=== PATIENT | male | born 1995 | race Caucasian/White ===

== ENCOUNTER 2018-04-17 22:22 | Emergency (ER) | payer BC ==
[2018-04-17] MEDS ORDERED: NS 0.9% 1000 ML* 1,000 ML IV ONE ×2 (22:44→23:45)
[2018-04-17 23:00] LABS: ABS Basophils 0.1 10^3/ul (0-0.2); ABS Eosinophils 0.1 10^3/ul (0-0.6); ABS Lymphocytes 2.1 10^3/ul (1.0-4.8); ABS Monocytes 0.6 10^3/ul (0-0.8); ABS Neutrophils 3.5 10^3/ul (1.5-7.7); ABS Nucleated RBC 0 10^3/ul; Eosinophil % 1.7 % (0-6); Hematocrit 41 % (42-52); Hemoglobin 14.1 g/dl (14.0-18.0); Lymphocyte % 33.2 % (25-47); Mean Corpuscular HGB Conc 34 g/dl (31-36); Mean Corpuscular Hemoglobin 29 pg (27-31); Mean Corpuscular Volume 85 fL (80-94); Mean Platelet Volume 9.6 um3 (7.4-10.4); Nucleated Red Blood Cells % 0.1; Platelet Count 135 10^3/ul (150-450); Red Blood Count 4.85 10^6/ul (4.00-5.40); Red Cell Distribution Width 13 % (10.5-15); White Blood Count 6.4 10^3/ul (3.5-10.8)
[2018-04-17 23:18] LABS: EGFR Non-African American 134.4 (>60)
--- NOTE | 2018-04-17 23:21 | ED ---
Syncope/Near Syncope - HPI Summary HPI Summary: 23 year old male presents with syncope today. He states that he went outside and felt very dizzy. He states he felt so weak that he dropped to his knees. He states that he told his girlfriend he just wanted to rest for a while and then he passed out. He was out for like 5 minutes. EMS arrived and had to stimulate him with painful stimuli to arouse him. He states he has passed out once 10 years ago when [place] was [place] No family history of syncope. He states he's been having occasional shortness of breath. No chest pain. He states he feels that he did have some blurry vision right before he passed out. No bowel pain. No blood in stool. No sore throat. No fever. No recent illness. He also he states that he has had loss of appetite. He had some popcorn before he passed out. He states that prior to this that he passed out 2 times earlier today. the previous syncopal episodes were witnessed. His girlfriend denies that he hit his head. - History Of Current Complaint Chief Complaint: EDSyncope Time Seen by Provider: 04/17/18 22:44 - Allergies/Home Medications Allergies/Adverse Reactions: Allergies Allergy/AdvReac Type Severity Reaction Status Date / Time No Known Allergies Allergy Verified 04/17/18 22:52 Home Medications: Home Medications NK [No Home Medications Reported] 04/17/18 [History Confirmed 04/17/18] PMH/Surg Hx/FS Hx/Imm Hx Endocrine/Hematology History: Denies: Hx Anticoagulant Therapy Cardiovascular History: Denies: Hx Hypertension, Hx Myocardial Infarction Infectious Disease History: No Infectious Disease History: Denies: Traveled Outside the [place] in Last 30 Days - Family History Known Family History: Positive: Other - no fam hx of syncope Negative: Cardiac Disease - Social History Alcohol Use: Occasionally Substance Use Type: Reports: None Smoking Status (MU): Light Every Day Tobacco Smoker Review of Systems Negative: Fever Negative: Chest Pain Negative: Shortness Of Breath Positive: Weakness, Syncope All Other Systems Reviewed And Are Negative: Yes Physical Exam Triage Information Reviewed: Yes Vital Signs On Initial Exam: Initial Vitals Temp Pulse Resp BP Pulse Ox 99.0 F 90 18 141/81 98 04/17/18 22:36 04/17/18 22:36 04/17/18 22:36 04/17/18 22:36 04/17/18 22:36 Vital Signs Reviewed: Yes Appearance: Positive: Well-Appearing Skin: Positive: Warm, Dry Head/Face: Positive: Normal Head/Face Inspection Eyes: Positive: Normal, EOMI, HORACIO, Conjunctiva Clear ENT: Positive: Pharynx normal Respiratory/Lung Sounds: Positive: Clear to Auscultation, Breath Sounds Present Cardiovascular: Positive: Normal, RRR Abdomen Description: Positive: Nontender, Soft Bowel Sounds: Positive: Present Musculoskeletal: Positive: Normal Neurological: Positive: Sensory/Motor Intact, Alert, Oriented to Person Place, Time, CN Intact II-III Psychiatric: Positive: Normal Diagnostics - Vital Signs Vital Signs Temp Pulse Resp BP Pulse Ox 04/17/18 22:36 99.0 F 90 18 141/81 98 - Laboratory Lab Results: Lab Results 04/17/18 04/17/18 04/17/18 Range/Units 22:51 22:51 22:51 WBC 6.4 (3.5-10.8) 10^3/ul RBC 4.85 (4.00-5.40) 10^6/ul Hgb 14.1 (14.0-18.0) g/dl Hct 41 L (42-52) % MCV 85 (80-94) fL MCH 29 (27-31) pg MCHC 34 (31-36) g/dl RDW 13 (10.5-15) % Plt Count 135 L (150-450) 10^3/ul MPV 9.6 (7.4-10.4) um3 Neut % (Auto) 55.2 (38-83) % Lymph % (Auto) 33.2 (25-47) % Tompkins % (Auto) 9.1 H (0-7) % Eos % (Auto) 1.7 (0-6) % Baso % (Auto) 0.8 (0-2) % Absolute Neuts (auto) 3.5 (1.5-7.7) 10^3/ul Absolute Lymphs (auto) 2.1 (1.0-4.8) 10^3/ul Absolute Monos (auto) 0.6 (0-0.8) 10^3/ul Absolute Eos (auto) 0.1 (0-0.6) 10^3/ul Absolute Basos (auto) 0.1 (0-0.2) 10^3/ul Absolute Nucleated RBC 0 10^3/ul Nucleated RBC % 0.1 Sodium 141 (135-145) mmol/L Potassium 3.5 (3.5-5.0) mmol/L Chloride 111 (101-111) mmol/L Carbon Dioxide 26 (22-32) mmol/L Anion Gap 4 (2-11) mmol/L BUN 9 (6-24) mg/dL Creatinine 0.73 (0.67-1.17) mg/dL Est GFR ( Amer) 162.6 (>60) Est GFR (Non-Af Amer) 134.4 (>60) BUN/Creatinine Ratio 12.3 (8-20) Glucose 78 (70-100) mg/dL Lactic Acid 1.3 (0.5-2.0) mmol/L Calcium 8.7 (8.6-10.3) mg/dL Magnesium 2.0 (1.9-2.7) mg/dL Total Bilirubin 0.60 (0.2-1.0) mg/dL AST 16 (13-39) U/L ALT 11 (7-52) U/L Alkaline Phosphatase 60 (34-104) U/L Troponin I 0.00 (<0.04) ng/mL Total Protein 5.9 L (6.4-8.9) g/dL Albumin 4.0 (3.2-5.2) g/dL Globulin 1.9 L (2-4) g/dL Albumin/Globulin Ratio 2.1 (1-3) TSH Pending Result Diagrams: 04/17/18 22:51 04/17/18 22:51 Lab Statement: Any lab studies that have been ordered have been reviewed, and results considered in the medical decision making process. - EKG No standard instances Cardiac Rate: NL EKG Rhythm: Sinus Rhythm EKG Interpretation: sinus rhythm with early repolization Re-Evaluation - Re-Evaluation First Eval Re-Evaluation Time: 23:46 Change: Improved Comment: feeling better after fluids Second Eval Re-Evaluation Time: 01:31 Change: Improved Comment: feeling better Course/Dx Course Of Treatment: 23 year old male presents with syncope today. He states that he went outside and felt very dizzy. He states he felt so weak that he dropped to his knees. He states that he told his girlfriend he just wanted to rest for a while and then he passed out. He was out for like 5 minutes. EMS arrived and had to stimulate him with painful stimuli to arouse him. He states he has passed out once [place] years ago when [place] was [place] No family history of syncope. He states he's been having occasional shortness of breath. No chest pain. He states he feels that he did have some blurry vision right before he passed out. No bowel pain. No blood in stool. No sore throat. No fever. No recent illness. He also he states that he has had loss of appetite. He had some popcorn before he passed out. He states that prior to this that he passed out 2 times earlier today. the previous syncopal episodes were witnessed. His girlfriend denies that he hit his head. on exam has normal neuro exam. lungs CTA. abd soft nontender. ekg normal sinus rythmn with early repolization. d-dimer neg. troponin neg. wbc normal. gave fluids and feeling better. vitals not orthostatic. will discharge with follow up with primary to further work up syncope. patient understand and agrees with plan. - Diagnoses Differential Diagnosis/HQI/PQRI: Positive: Hypoglycemia, Hypovolemia, Pulmonary Embolism Provider Diagnoses: Syncope Discharge - Sign-Out/Discharge Documenting (check all that apply): Patient Departure - Discharge Plan Condition: Good Disposition: HOME Patient Education Materials: Syncope (ED) Forms: *Work Release Referrals: Christina Blount PA [Primary Care Provider] - Additional Instructions: Drink plenty of fluids Eat small snacks as tolerated Follow up with primary within 5 days Return to ED if develop any new or worsening symptoms - Billing Disposition and Condition Condition: GOOD Disposition: Home
[2018-04-17 23:58] LABS: Urine Appearance Clear; Urine Blood Negative (Negative); Urine Color Colorless; Urine Ketones Negative (Negative); Urine Protein Negative (Negative); Urine Specific Gravity 1.003 (1.010-1.030); Urine Urobilinogen Negative (Negative)
[2018-04-18 01:58] VITALS: BP 123/88
--- NOTE | 2018-04-18 07:33 | RAD ---
HISTORY: syncope COMPARISONS: March 12, 2016 VIEWS: 4: Frontal dual-energy and lateral views of the chest. FINDINGS: CARDIOMEDIASTINAL SILHOUETTE: The cardiomediastinal silhouette is normal. NANCY: The nancy are normal. PLEURA: The costophrenic angles are sharp. No pleural abnormalities are noted. LUNG PARENCHYMA: The lungs are clear. ABDOMEN: The upper abdomen is clear. There is no subphrenic gas. BONES AND SOFT TISSUES: No bone or soft tissue abnormalities are noted. OTHER: None. IMPRESSION: NO ACTIVE CARDIOPULMONARY DISEASE. R1
== END 2018-04-18 01:56 | disposition home or self-care (01) ==
LOC: ED 22:22
DX: R55 Syncope and collapse (principal); Z72.0 Tobacco use
CPT/HCPCS: 36415; 71046; 80053; 80307; 80320; 81003; 83605; 83735; 84443; 84484; 85025; 85379; 93005; 96360; 96361; 99284; G0480

== ENCOUNTER 2018-04-19 13:19 | Emergency (ER) | payer BC ==
--- NOTE | 2018-04-19 14:58 | RAD ---
HISTORY: fall headache COMPARISONS: None TECHNIQUE: Multiple contiguous axial CT scans were obtained of the head without intravenous contrast. FINDINGS: HEMORRHAGE/INFARCT: There is no hemorrhage or acute infarct. MASSES/SHIFT: There is no mass or shift. EXTRA-AXIAL SPACES: There are no extra-axial fluid collections. SULCI AND VENTRICLES: The sulci and ventricles are normal in size and position for the patient's stated age. CEREBRUM: There are no focal parenchymal abnormalities. BRAINSTEM: There are no focal parenchymal abnormalities. CEREBELLUM: There are no focal parenchymal abnormalities. VESSELS: The vessels are grossly normal. PARANASAL SINUSES: The paranasal sinuses are clear. ORBITS: The orbits are unremarkable. BONES AND SOFT TISSUE: No bone or soft tissue abnormalities are noted. OTHER: None IMPRESSION: NO ACUTE INTRACRANIAL PATHOLOGY.
--- NOTE | 2018-04-19 15:07 | RAD ---
HISTORY: fall, neck stiffness COMPARISONS: None TECHNIQUE: Multiple contiguous axial CT scans were obtained of the cervical spine without intravenous contrast, with coronal and sagittal multiplanar reformations. FINDINGS: BRAIN: The visualized brain is unremarkable CENTRAL CANAL: Evaluation of the central canal is limited on CT technique, however there is no obvious canalicular mass or epidural hemorrhage. ALIGNMENT: There is straightening of the normal cervical lordosis. VERTEBRAL BODIES: The odontoid process is intact. The atlantoaxial intervals are symmetric. The vertebral bodies are normal in attenuation, without fracture. JOINTS: There is no subluxation or dislocation MUSCULATURE: Normal INTERVERTEBRAL DISCS: The intervertebral disc spaces are relatively preserved in height. AXIAL IMAGES: On axial images, there is no osseous neural foraminal narrowing or central canal stenosis. SOFT TISSUES: The visualized soft tissues of the neck are unremarkable. The prevertebral fat stripe is preserved. OTHER: The right mastoid air cells are sclerotic and coalescent. IMPRESSION: 1. NO ACUTE OSSEOUS INJURY TO THE CERVICAL SPINE. 2. INCIDENTALLY NOTED ARE FINDINGS SUGGESTIVE OF CHRONIC RIGHT MASTOIDITIS
[2018-04-19 16:28] VITALS: BP 139/81
--- NOTE | 2018-04-19 16:36 | ED ---
Head Injury - HPI Summary HPI Summary: Pt. is a 23-year-old male who presents emergency department for head and neck injury that occurred several hours prior to arrival. Pt. states he was riding his skate board when he lost his balance going over a small rock. Pt. states he fell christensen back and struck his head. Patient states his had "bouts" off of the concrete several times. Denies loss of consciousness, visual changes, nausea, vomiting. States his head and neck pain have progressively got worse. Associated symptoms of hematoma posterior scalp. Pt. also c/o mild left hip pain but states he is able to ambulate without pain. Patient has no other past medical history. Symptoms are moderate in severity. Movement makes symptoms worse. Rest makes symptoms better. - History Of Current Complaint Chief Complaint: EDHeadInjury Stated Complaint: HEAD INJURY Time Seen by Provider: 04/19/18 14:32 Hx Obtained From: Patient, Family/Manager Card Pain Intensity: 0 Pain Scale Used: 0-10 Numeric - Allergies/Home Medications Allergies/Adverse Reactions: Allergies Allergy/AdvReac Type Severity Reaction Status Date / Time No Known Allergies Allergy Verified 04/17/18 22:52 PMH/Surg Hx/FS Hx/Imm Hx Previously Healthy: Yes Endocrine/Hematology History: Denies: Hx Anticoagulant Therapy Cardiovascular History: Denies: Hx Hypertension, Hx Myocardial Infarction Infectious Disease History: No Infectious Disease History: Denies: Traveled Outside the [place] in Last 30 Days - Family History Known Family History: Positive: Other - no fam hx of syncope Negative: Cardiac Disease - Social History Occupation: Employed Full-time Lives: With Family Alcohol Use: Occasionally Substance Use Type: Reports: None Smoking Status (MU): Light Every Day Tobacco Smoker Review of Systems Eyes: Negative Cardiovascular: Negative Respiratory: Negative Gastrointestinal: Negative Negative: Abdominal Pain, Vomiting, Nausea Positive: Other - Mild left hip pain. Neck pain Positive: Headache. Negative: Weakness, Paresthesia, Numbness, Syncope All Other Systems Reviewed And Are Negative: Yes Physical Exam Triage Information Reviewed: Yes Vital Signs On Initial Exam: Initial Vitals Temp Pulse Resp BP Pulse Ox 98.5 F 84 17 124/74 99 04/19/18 14:14 04/19/18 14:14 04/19/18 14:14 04/19/18 14:14 04/19/18 14:14 Vital Signs Reviewed: Yes Appearance: Positive: Well-Appearing - Pt. lying flat on bed in NAD. Cervical collar in place. Skin: Positive: Warm, Dry Head/Face: Positive: Normal Head/Face Inspection Eyes: Positive: Normal, EOMI Neck: Positive: Other: - Cervical collar inplace Musculoskeletal: Positive: Other - Mild pain on the lateral aspect of left hip. No pain with ROM of hip. Neurological: Positive: Normal, CN Intact II-III Psychiatric: Positive: Affect/Mood Appropriate Diagnostics - Vital Signs Vital Signs Temp Pulse Resp BP Pulse Ox 04/19/18 16:17 98.5 F 59 16 139/81 99 04/19/18 14:14 98.5 F 84 17 124/74 99 - Laboratory Lab Statement: Any lab studies that have been ordered have been reviewed, and results considered in the medical decision making process. Head Injury Course/Dx Course Of Treatment: Presenting for head and neck pain after a mechanical fall. He has a posterior hematoma and headache, neck pain and given mechanism we'll obtain CT scan of head and neck. He has minimal pain of is left hip and is able to ambulate without pain. Head and neck CT are negative for acute findings , reading per radiology. Cervical collar was removed and neck was reexamined. No midline neck tenderness, pain and swelling lateral aspect. Results discussed. Advised patient to apply ice to hematoma and heat to neck. Can take Tylenol Motrin for pain as directed. Symptoms of concussion were discussed with patient and mother if they present. Pt. does not play any contact sports. Patient will follow up with his PCP. Return to the ER if symptoms change or worsen. Patient understands and agrees with plan. - Diagnoses Differential Diagnosis/HQI/PQRI: Cerebral Contusion, Cervical Sprain, Concussion Without LOC, Hematoma, Intracranial Bleed, Laceration, Skull Fracture Provider Diagnoses: Scalp hematoma, Head injury, Cervical strain Discharge - Sign-Out/Discharge Documenting (check all that apply): Patient Departure - Discharge Plan Condition: Good Disposition: HOME Patient Education Materials: Cervical Strain (ED), Concussion (ED), Head Injury (ED) Forms: *Work Release Referrals: Christina Blount PA [Primary Care Provider] - Additional Instructions: Schedule a follow up appointment with your PCP Ice head intermittently Apply heat to neck Tylenol or Motrin for pain as directed Return to ER if symptoms change or worsen - Billing Disposition and Condition Condition: GOOD Disposition: Home
== END 2018-04-19 16:17 | disposition home or self-care (01) ==
LOC: ED 13:19
DX: S09.90XA Unspecified injury of head, initial encounter (principal); W19.XXXA Unspecified fall, initial encounter; Y92.9 Unspecified place or not applicable
CPT/HCPCS: 70450; 72125; 99282

== ENCOUNTER 2018-09-16 07:56 | Emergency (ER) | payer BC ==
[2018-09-16] MEDS ORDERED: NS 0.9% 1000 ML* 1,000 ML IV ONE (08:12)
--- NOTE | 2018-09-16 08:12 | ED ---
Abdominal Pain/Male - HPI Summary HPI Summary: Patient is a 23 y/o M presenting to ED with complaints of epigastric abdominal pain, nausea, and black, coffee ground emesis. Pain onset 1929 last night, has been constant since. Patient decided to take a walk this morning, states he vomited during it. Emesis is described as black coffee grounds. He had tofu, noodles last night. Tofu was noted to be two months after the fact. In the room, pain is rated 3/10. At onset, pain was rated 9/10. No diarrhea reported, he has not had bowel movement today. No similar episodes of such Sx are reported. No PMHx, patient had wisdom teeth removal. Patient smokes, drinks alc occasionally, denies drug usage. Home medications and allergies are reviewed. - History of Current Complaint Chief Complaint: EDAbdPain Stated Complaint: ABD PAIN, VOMITING BLOOD Hx Obtained From: Patient Onset/Duration: Lasting Hours - last night onset 1929, Still Present Timing: Constant, Lasting Hours - last night onset 1929 Severity Initially: Severe - 9/10 initially Severity Currently: Mild - 3/10 in room Pain Intensity: 3 Pain Scale Used: 0-10 Numeric - 3/10 in room Location: Epigastric Aggravating Factor(s): Nothing Alleviating Factor(s): Nothing Associated Signs And Symptoms: Positive: Nausea, Vomiting. Negative: Diarrhea - Allergies/Home Medications Allergies/Adverse Reactions: Allergies Allergy/AdvReac Type Severity Reaction Status Date / Time bee venom protein (honey bee) Allergy Swelling Verified 09/16/18 08:12 PMH/Surg Hx/FS Hx/Imm Hx Endocrine/Hematology History: Denies: Hx Anticoagulant Therapy Cardiovascular History: Denies: Hx Hypertension, Hx Myocardial Infarction Sensory History: Denies: Hx Legally Blind, Hx Deafness Opthamlomology History: Denies: Hx Legally Blind EENT History: Denies: Hx Deafness - Surgical History Surgery Procedure, Year, and Place: wisdom teeth removal Infectious Disease History: No Infectious Disease History: Denies: Traveled Outside the [place] in Last 30 Days - Family History Known Family History: Positive: Other - no fam hx of syncope Negative: Cardiac Disease - Social History Alcohol Use: Occasionally Substance Use Type: Reports: None Smoking Status (MU): Light Every Day Tobacco Smoker Review of Systems Negative: Fever - ON VITALS, TEMP IS 97.6 F Positive: Abdominal Pain, Vomiting, Nausea. Negative: Diarrhea All Other Systems Reviewed And Are Negative: Yes Physical Exam - Summary Physical Exam Summary: VITAL SIGNS: Reviewed. GENERAL: Patient is a well-developed and nourished male who is lying comfortable in the stretcher. Patient is not in any acute respiratory distress. HEAD AND FACE: No signs of trauma. No ecchymosis, hematomas or skull depressions. No sinus tenderness. EYES: PERRLA, EOMI x 2, No injected conjunctiva, no nystagmus. EARS: Hearing grossly intact. Ear canals and tympanic membranes are within normal limits. MOUTH: Oropharynx within normal limits. NECK: Supple, trachea is midline, no adenopathy, no JVD, no carotid bruit, no c- spine tenderness, neck with full ROM. CHEST: Symmetric, no tenderness at palpation LUNGS: Clear to auscultation bilaterally. No wheezing or crackles. CVS: Regular rate and rhythm, S1 and S2 present, no murmurs or gallops appreciated. ABDOMEN: Soft, epigastric tenderness. No signs of distention. No rebound no guarding, and no masses palpated. Bowel sounds are normal. EXTREMITIES: FROM in all major joints, no edema, no cyanosis or clubbing. NEURO: Alert and oriented x 3. No acute neurological deficits. Speech is normal and follows commands. SKIN: Dry and warm Triage Information Reviewed: Yes Vital Signs On Initial Exam: Initial Vitals Temp Pulse Resp BP Pulse Ox 97.6 F 72 18 135/88 99 09/16/18 08:00 09/16/18 08:00 09/16/18 08:00 09/16/18 08:00 09/16/18 08:00 Vital Signs Reviewed: Yes Diagnostics - Vital Signs Vital Signs Temp Pulse Resp BP Pulse Ox 09/16/18 08:00 97.6 F 72 18 135/88 99 - Laboratory Result Diagrams: 09/16/18 07:40 09/16/18 07:40 Lab Statement: Any lab studies that have been ordered have been reviewed, and results considered in the medical decision making process. - Radiology ABDOMEN X-RAY Radiology Interpretation Completed By: Radiologist Summary of Radiographic Findings: IMPRESSION: NO EVIDENCE FOR ACUTE FINDING. THIS REPORT WAS REVIEWED BY ED PHYSICIAN. Re-Evaluation - Re-Evaluation First Eval Re-Evaluation Time: 10:29 Comment: I discussed all the findings and test results with the patient. Patient was instructed to return to the emergency room immediately if any of the symptoms return or worsens. Plan of care was discussed with the patient and understands and agrees. All questions were answered at patient satisfaction. There were no further complaints or concerns. Lung exam before discharge: CTA B/ L. Good air exchange. No wheezing or crackles heard. CVS: S1 and S2 present. No murmurs appreciated. Patient is alert and oriented x 3. Patient is hemodynamically stable. Patient will be discharged home with follow up PCP in the next 2-3 day Abdominal Pain Fem Course/Dx - Course Assessment/Plan: Patient is a 23 y/o M presenting to ED with complaints of mid abdominal pain, nausea, and black, coffee ground emesis. Pain onset 1929 last night, was constant since then. Patient decided to take walk this morning, states he vomited during it. Emesis is described as black coffee grounds. He had tofu, noodles last night. Tofu was noted to be two months after the fact. In the room, pain is rated 3/10. At onset, pain was rated 9/10. No diarrhea reported, he has not had bowel movement today. No similar episodes of such Sx are reported. No PMHx, patient had wisdom teeth removal. Patient smokes , drinks alc occasionally, denies drug usage. Home medications and allergies are reviewed. Blood work without any significant abnormality. Abdomen x-ray impression: No evidence for acute findings. In the ED course the patient was signed stable. The patient was given a GI cocktail and symptoms resolved. Patient also was given IV fluids. After these medications the patients symptoms have significantly improved therefore the patient will be discharged home with follow-up with PCP. I discussed all the findings and test results with the patient. Patient was instructed to return to the emergency room immediately if any of the symptoms return or worsens. Plan of care was discussed with the patient and understands and agrees. All questions were answered at patient satisfaction. There were no further complaints or concerns. Lung exam before discharge: CTA B/L. Good air exchange. No wheezing or crackles heard. CVS: S1 and S2 present. No murmurs appreciated. Patient is alert and oriented x 3. Patient is hemodynamically stable. Patient will be discharged home with follow up PCP in the next 2-3 day - Diagnoses Differential Diagnosis/HQI/PQRI: Constipation, Pancreatitis, Urinary Tract Infection Provider Diagnoses: Epigastric pain, Nausea and vomiting Discharge - Sign-Out/Discharge Documenting (check all that apply): Patient Departure - DISCHARGE - Discharge Plan Condition: Stable Disposition: HOME Prescriptions: Omeprazole CAP (NF) [Prilosec CAP* 20 MG] 20 mg PO DAILY PRN #14 cap.dr PRN Reason: Dyspepsia Ondansetron TAB* [Zofran 4 MG Tab*] 4 mg PO Q6H PRN #10 tab PRN Reason: Nausea Patient Education Materials: Acute Nausea and Vomiting (ED), Abdominal Pain (ED ) Referrals: Christina Blount PA [Primary Care Provider] - 3 Days Additional Instructions: RETURN TO ED FOR ANY NEW OR WORSENING SYMPTOMS. FOLLOW UP WITH PRIMARY CARE PHYSICIAN IN 2-3 DAYS. - Attestation Statements Document Initiated by Scribe: Yes Documenting Scribe: HOPE CULP Provider For Whom Scribe is Documenting (Include Credential): MILI SCHMIDT MD Scribe Attestation: HOPE Marquez , scribed for MILI SCHMIDT MD on 09/16/18 at 1039. Status of Scribe Document: Ready
[2018-09-16] MEDS ORDERED: Ondansetron INJ* 2 MG/ML VIAL IV ONE (08:13)
[2018-09-16] MEDS ORDERED: Lidocaine 2% VISCOUS* 15 ML UDC PO ONE (08:14)
[2018-09-16] MEDS ORDERED: Al Hydrox/Mg Hydrox/Simet LIQ* 30 ML UDC PO ONE (08:14)
[2018-09-16 08:52] LABS: ABS Basophils 0 10^3/ul (0-0.2); ABS Eosinophils 0.1 10^3/ul (0-0.6); ABS Lymphocytes 1.6 10^3/ul (1.0-4.8); ABS Monocytes 0.4 10^3/ul (0-0.8); ABS Neutrophils 4.9 10^3/ul (1.5-7.7); ABS Nucleated RBC 0 10^3/ul; Hematocrit 46 % (42-52); Hemoglobin 15.3 g/dl (14.0-18.0); Mean Corpuscular HGB Conc 33 g/dl (31-36); Mean Corpuscular Hemoglobin 28 pg (27-31); Mean Corpuscular Volume 85 fL (80-94); Mean Platelet Volume 9.2 fL (7.4-10.4); Nucleated Red Blood Cells % 0.1; Platelet Count 202 10^3/ul (150-450); Red Blood Count 5.38 10^6/ul (4.00-5.40); Red Cell Distribution Width 13 % (10.5-15)
[2018-09-16 09:01] LABS: ALT 13 U/L (7-52); AST 19 U/L (13-39); Albumin 4.2 g/dL (3.2-5.2); Albumin/Globulin Ratio 1.6 (1-3); Alkaline Phosphatase 76 U/L (34-104); Anion Gap 4 mmol/L (2-11); Blood Urea Nitrogen 10 mg/dL (6-24); C Reactive Protein < 1.00 mg/L (<8.01); CO2 Carbon Dioxide 29 mmol/L (22-32); Calcium 9.7 mg/dL (8.6-10.3); Chloride 105 mmol/L (101-111); EGFR Non-African American 115.9 (>60); Globulin 2.7 g/dL (2-4); Glucose 92 mg/dL (70-100); Potassium 4.2 mmol/L (3.5-5.0); Sodium 138 mmol/L (135-145); Total Protein 6.9 g/dL (6.4-8.9)
[2018-09-16 11:40] VITALS: BP 138/95
== END 2018-09-16 11:40 | disposition home or self-care (01) ==
LOC: ED 07:56
DX: R11.2 Nausea with vomiting, unspecified (principal); Z91.030 Bee allergy status; F17.200 Nicotine dependence, unspecified, uncomplicated
CPT/HCPCS: 36415; 74019; 80053; 83605; 83690; 85025; 86140; 96361; 96374; 99283; A9270-GY; J2405

== ENCOUNTER 2018-09-17 16:28 | Emergency (ER) | payer BC ==
[2018-09-17 18:43] LABS: ABS Basophils 0 10^3/ul (0-0.2); ABS Eosinophils 0.1 10^3/ul (0-0.6); ABS Lymphocytes 2.6 10^3/ul (1.0-4.8); ABS Monocytes 0.5 10^3/ul (0-0.8); ABS Neutrophils 9.2 10^3/ul (1.5-7.7); ABS Nucleated RBC 0 10^3/ul; Eosinophil % 0.4 %; Hematocrit 47 % (42-52); Lymphocyte % 20.7 %; Mean Corpuscular HGB Conc 35 g/dl (31-36); Mean Corpuscular Hemoglobin 29 pg (27-31); Mean Corpuscular Volume 84 fL (80-94); Mean Platelet Volume 8.9 fL (7.4-10.4); Nucleated Red Blood Cells % 0; Platelet Count 214 10^3/ul (150-450); Red Blood Count 5.56 10^6/ul (4.00-5.40); Red Cell Distribution Width 13 % (10.5-15); White Blood Count 12.4 10^3/ul (3.5-10.8)
[2018-09-17 19:00] LABS: ALT 13 U/L (7-52); AST 19 U/L (13-39); Albumin 4.8 g/dL (3.2-5.2); Albumin/Globulin Ratio 1.8 (1-3); Alkaline Phosphatase 81 U/L (34-104); Anion Gap 7 mmol/L (2-11); BUN/Creatinine Ratio 11.9 (8-20); Blood Urea Nitrogen 10 mg/dL (6-24); CO2 Carbon Dioxide 29 mmol/L (22-32); Calcium 10.1 mg/dL (8.6-10.3); Chloride 103 mmol/L (101-111); EGFR Non-African American 114.3 (>60); Globulin 2.6 g/dL (2-4); Glucose 102 mg/dL (70-100); Potassium 3.8 mmol/L (3.5-5.0); Sodium 139 mmol/L (135-145); Total Protein 7.4 g/dL (6.4-8.9)
[2018-09-17] MEDS ORDERED: NS 0.9% 1000 ML* 1,000 ML IV ONE (20:41)
[2018-09-17] MEDS ORDERED: Morphine VIAL* 10 MG/ML 1 ML VIAL IV ONE (20:41)
[2018-09-17] MEDS ORDERED: Ondansetron INJ* 2 MG/ML VIAL IV ONE (20:41)
[2018-09-17] MEDS ORDERED: Iohexol 300* (CONTRAST) 10 ML SDV IV ONE (22:10)
--- NOTE | 2018-09-17 23:48 | ED ---
Abdominal Pain/Male - HPI Summary HPI Summary: Patient complains of upper abdominal pain, nausea 3 days. Patient seen here yesterday for same, discharged with Prilosec. Patient states he was given GI cocktail yesterday with no relief. Patient also told to come back if symptoms are worse. Patient states symptoms have become worse. Abdominal pain is constant, worse after eating, worse with movement. Patient denies fever, cough , sore throat, CP, SOB, trauma, V/D, change in urine, change in BM, penis or testicular symptoms. Medical history is none. Abdominal surgical history is none. Positive smoker, denies EtOH or recreational drug use. No antipyretics today. - History of Current Complaint Chief Complaint: EDAbdPain Stated Complaint: ABD PAIN Time Seen by Provider: 09/17/18 20:23 Hx Obtained From: Patient Onset/Duration: Gradual Onset, Lasting Days Timing: Constant Severity Initially: Severe Severity Currently: Severe Pain Intensity: 8 Pain Scale Used: 0-10 Numeric Location: Discrete At: RUQ, Discrete At: LUQ, Epigastric Radiates: Yes Radiates to: Back Aggravating Factor(s): Food, Movement Alleviating Factor(s): Nothing Associated Signs And Symptoms: Positive: Nausea - Allergies/Home Medications Allergies/Adverse Reactions: Allergies Allergy/AdvReac Type Severity Reaction Status Date / Time bee venom protein (honey bee) Allergy Swelling Verified 09/17/18 16:50 PMH/Surg Hx/FS Hx/Imm Hx Endocrine/Hematology History: Denies: Hx Anticoagulant Therapy, Hx Diabetes Cardiovascular History: Denies: Hx Hypertension, Hx Myocardial Infarction History: Denies: Hx Dialysis Sensory History: Denies: Hx Legally Blind, Hx Deafness Opthamlomology History: Denies: Hx Legally Blind EENT History: Denies: Hx Deafness Neurological History: Denies: Hx Developmental Delay Psychiatric History: Denies: Hx Autism - Surgical History Surgery Procedure, Year, and Place: wisdom teeth removal Infectious Disease History: No Infectious Disease History: Denies: Traveled Outside the [place] in Last 30 Days - Family History Known Family History: Positive: Other - no fam hx of syncope Negative: Cardiac Disease - Social History Alcohol Use: Occasionally Substance Use Type: Reports: None Smoking Status (MU): Light Every Day Tobacco Smoker Review of Systems Constitutional: Negative Eyes: Negative ENT: Negative Cardiovascular: Negative Respiratory: Negative Positive: Abdominal Pain, Nausea Genitourinary: Negative Musculoskeletal: Negative Skin: Negative Neurological: Negative Psychological: Normal All Other Systems Reviewed And Are Negative: Yes Physical Exam - Summary Physical Exam Summary: Tenderness to palpation right upper quadrant, epigastric, left upper quadrant. Abdominal exam otherwise unremarkable. Triage Information Reviewed: Yes Vital Signs On Initial Exam: Initial Vitals Temp Pulse Resp BP Pulse Ox 98.7 F 73 16 158/100 97 09/17/18 16:47 09/17/18 16:47 09/17/18 16:47 09/17/18 16:47 09/17/18 16:47 Vital Signs Reviewed: Yes Appearance: Positive: Well-Appearing Skin: Positive: Warm Head/Face: Positive: Normal Head/Face Inspection Eyes: Positive: Normal ENT: Positive: Normal ENT inspection Neck: Positive: Supple Respiratory/Lung Sounds: Positive: Clear to Auscultation Cardiovascular: Positive: Normal Abdomen Description: Positive: Other: Musculoskeletal: Positive: Normal Neurological: Positive: Normal Psychiatric: Positive: Normal AVPU Assessment: Alert - Towner Coma Scale Best Eye Response: 4 - Spontaneous Best Motor Response: 6 - Obeys Commands Best Verbal Response: 5 - Oriented Coma Scale Total: 15 Diagnostics - Vital Signs Vital Signs Temp Pulse Resp BP Pulse Ox 09/17/18 23:00 64 97 09/17/18 22:59 65 130/77 98 09/17/18 22:30 78 121/96 99 09/17/18 22:00 54 100 09/17/18 21:59 60 135/84 99 09/17/18 21:29 66 146/92 99 09/17/18 21:20 16 09/17/18 21:19 69 98 09/17/18 20:30 75 99 09/17/18 20:29 74 139/88 98 09/17/18 18:56 98.8 F 53 16 156/76 99 09/17/18 16:47 98.7 F 73 16 158/100 97 - Laboratory Lab Results: Lab Results 09/17/18 09/17/18 Range/Units 18:22 18:23 WBC 12.4 H (3.5-10.8) 10^3/ul RBC 5.56 H (4.00-5.40) 10^6/ul Hgb 16.0 (14.0-18.0) g/dl Hct 47 (42-52) % MCV 84 (80-94) fL MCH 29 (27-31) pg MCHC 35 (31-36) g/dl RDW 13 (10.5-15) % Plt Count 214 (150-450) 10^3/ul MPV 8.9 (7.4-10.4) fL Neut % (Auto) 74.1 % Lymph % (Auto) 20.7 % Branch % (Auto) 4.4 % Eos % (Auto) 0.4 % Baso % (Auto) 0.4 % Absolute Neuts (auto) 9.2 H (1.5-7.7) 10^3/ul Absolute Lymphs (auto) 2.6 (1.0-4.8) 10^3/ul Absolute Monos (auto) 0.5 (0-0.8) 10^3/ul Absolute Eos (auto) 0.1 (0-0.6) 10^3/ul Absolute Basos (auto) 0 (0-0.2) 10^3/ul Absolute Nucleated RBC 0 10^3/ul Nucleated RBC % 0 Sodium 139 (135-145) mmol/L Potassium 3.8 (3.5-5.0) mmol/L Chloride 103 (101-111) mmol/L Carbon Dioxide 29 (22-32) mmol/L Anion Gap 7 (2-11) mmol/L BUN 10 (6-24) mg/dL Creatinine 0.84 (0.67-1.17) mg/dL Est GFR ( Amer) 138.3 (>60) Est GFR (Non-Af Amer) 114.3 (>60) BUN/Creatinine Ratio 11.9 (8-20) Glucose 102 H (70-100) mg/dL Calcium 10.1 (8.6-10.3) mg/dL Total Bilirubin 0.60 (0.2-1.0) mg/dL AST 19 (13-39) U/L ALT 13 (7-52) U/L Alkaline Phosphatase 81 (34-104) U/L Total Protein 7.4 (6.4-8.9) g/dL Albumin 4.8 (3.2-5.2) g/dL Globulin 2.6 (2-4) g/dL Albumin/Globulin Ratio 1.8 (1-3) Lipase < 10 L (11.0-82.0) U/L Result Diagrams: 09/17/18 18:23 09/17/18 18:22 Lab Statement: Any lab studies that have been ordered have been reviewed, and results considered in the medical decision making process. Abdominal Pain Fem Course/Dx - Course Course Of Treatment: Patient complains of upper abdominal pain, nausea 3 days. Patient seen here yesterday for same, discharged with Prilosec. Patient states he was given GI cocktail yesterday with no relief. Patient also told to come back if symptoms are worse. Patient states symptoms have become worse. Abdominal pain is constant, worse after eating, worse with movement. Patient denies fever, cough, sore throat, CP, SOB, trauma, V/D, change in urine, change in BM, penis or testicular symptoms. Medical history is none. Abdominal surgical history is none. Positive smoker, denies EtOH or recreational drug use. No antipyretics today. Physical exam: Tenderness to palpation right upper quadrant, epigastric, left upper quadrant. Abdominal exam otherwise unremarkable. KUB yesterday unremarkable. Labs unremarkable yesterday. Labs today have increased white count. Lipase is normal. Ultrasound gallbladder unremarkable. CT abdomen and pelvis unremarkable. Labs unremarkable. Rx for Bentyl, Phenergan, tramadol. Follow-up with GI if symptoms persist. Patient understands and approved the plan. - Diagnoses Provider Diagnoses: Abdominal pain Discharge - Sign-Out/Discharge Documenting (check all that apply): Patient Departure - Discharge Plan Condition: Stable Disposition: HOME Prescriptions: Dicyclomine CAP* [Bentyl CAP*] 20 mg PO TID PRN 10 Days #60 cap PRN Reason: Pain Promethazine TAB* [Phenergan TAB*] 25 mg PO Q8H PRN 5 Days #15 tab PRN Reason: Nausea Tramadol HCl 50 mg PO TID 2 Days #6 tablet MDD 3 Patient Education Materials: Acute Abdominal Pain (ED) Referrals: Christina Blount PA [Primary Care Provider] - Hardik Thomas DO [Doctor of Osteopathy] - Additional Instructions: Continue taking Prilosec. Take Tylenol 650 mg every 4 hours for pain. Drink plenty of fluids. If symptoms persist follow-up with GI Dr. Hidalgo for further evaluation. Return to the ED for any new or worsening symptoms. - Billing Disposition and Condition Condition: STABLE Disposition: Home
[2018-09-18] MEDS ORDERED: traMADol TAB* 50 MG PO ONE
[2018-09-18] MEDS ORDERED: HYDROcodone/ACETAMIN 5-325 MG* 1 TAB PO ONE (00:01)
[2018-09-18 01:19] VITALS: BP 136/83
== END 2018-09-18 01:15 | disposition home or self-care (01) ==
LOC: ED 16:28
DX: R10.10 Upper abdominal pain, unspecified (principal); R11.0 Nausea; F17.210 Nicotine dependence, cigarettes, uncomplicated
CPT/HCPCS: 36415; 74177; 76705; 80053; 83690; 85025; 96361; 96374; 96375; 99284; J2270; J2405; Q9967